=== PATIENT | male | born 1950 | race Caucasian/White ===

== ENCOUNTER 2023-09-13 06:21 | Day surgery (SDC) | payer MEDICARE, OTHER ==
[2023-09-06 15:13] VITALS: BMI 27.3
[2023-09-13] MEDS ORDERED: Bupivacaine 0.25% HCL 30 ML VIAL ONE (06:58)
[2023-09-13] MEDS ORDERED: EPINEPHrine 1 MG/ML VIAL ONE (06:58)
[2023-09-13] MEDS ORDERED: Famotidine/PF 20 mg/2ml Vial ONE (07:06)
[2023-09-13] MEDS ORDERED: fentaNYL 50 mcg/mL 1 mL Vial ONE ×3 (07:44→10:51)
[2023-09-13] MEDS ORDERED: PROPOFOL 20 ML ONE (07:44)
[2023-09-13] MEDS ORDERED: Lidocaine 2% PF 5 ML VIAL ONE (07:52)
[2023-09-13] MEDS ORDERED: Rocuronium Bromide 10 MG/ML (10ML VIAL) ONE (07:52)
[2023-09-13] MEDS ORDERED: Sodium Chloride 0.9% 100 ML ONE (08:09)
[2023-09-13] MEDS ORDERED: CEFAZOLIN 2 GM VIAL ONE (08:09)
[2023-09-13] MEDS ORDERED: Ketorolac Tromethamine 30 MG (1 mL) VIAL ONE (09:09)
[2023-09-13] MEDS ORDERED: Ondansetron PF 4 MG/2 ML Vial ONE (09:09)
[2023-09-13] MEDS ORDERED: Dexamethasone 4 mg/ml Vial ONE (09:09)
[2023-09-13] MEDS ORDERED: SUGAMMADEX SODIUM 200 MG/2 ML VIAL ONE (09:09)
== END 2023-09-13 12:41 | disposition home or self-care (01) ==
LOC: SDC 06:21
PROVIDERS: ATTEND Surgery
PROC: 0YUA4JZ Supplement Bilateral Inguinal Region with Synthetic Substitute, Percutaneous Endoscopic Approach (ICD-10-PCS; principal; 2023-09-13)
DX: K40.20 Bilateral inguinal hernia, without obstruction or gangrene, not specified as recurrent (principal); K41.90 Unilateral femoral hernia, without obstruction or gangrene, not specified as recurrent; M06.9 Rheumatoid arthritis, unspecified; E78.5 Hyperlipidemia, unspecified; I25.10 Atherosclerotic heart disease of native coronary artery without angina pectoris; I49.3 Ventricular premature depolarization; Z80.0 Family history of malignant neoplasm of digestive organs; Z79.82 Long term (current) use of aspirin; Z79.899 Other long term (current) drug therapy
CPT/HCPCS: 49650; A4314; C1781 ×2; J0171; J3010; J0665; J1100; J1885; J2001; J2405; J2704; J3490; S0028

== ENCOUNTER 2024-09-27 14:47 | Outpatient (CLI) | payer MEDICARE, OTHER | END 2024-09-27 14:48 | disposition home or self-care (01) | LOC: BICCT 14:47 | PROVIDERS: ATTEND Urology | DX: R31.9 Hematuria, unspecified (principal) | CPT/HCPCS: 36415; 74178; 82565 ==